=== PATIENT | male | born 1990 | race African-American/Black ===

== ENCOUNTER 2017-10-31 18:21 | Emergency (ER) | payer OTHER ==
[~2017-10-31] VITALS: Ht 188 cm; Wt 81.7 kg
[2017-10-31] MEDS ORDERED: SYMBICORT80 MCG/4.1 INH (18:32)
[2017-10-31] MEDS ORDERED: IBUPROFEN 800800 M1 PO (19:37)
[2017-10-31] MEDS ORDERED: TRAMADOL 50 MG50 MG PO (19:37)
[2017-10-31] MEDS ORDERED: CLEOCIN HCL300 MG PO (19:37)
[2017-10-31 19:43] VITALS: BP 112/71
== END 2017-10-31 19:44 | disposition home or self-care (01) ==
LOC: M.ERS 18:21
DX: S02.5XXA Fracture of tooth (traumatic), initial encounter for closed fracture (principal); J45.909 Unspecified asthma, uncomplicated; X58.XXXA Exposure to other specified factors, initial encounter; Y93.89 Activity, other specified; Y92.89 Other specified places as the place of occurrence of the external cause; Y99.8 Other external cause status

== ENCOUNTER 2017-12-04 16:20 | Emergency (ER) | payer OTHER ==
[~2017-12-04] VITALS: Ht 188 cm; Wt 81.7 kg
[~2017-12-04 16:20] MED LIST: CLEOCIN HCL300 MG PO; IBUPROFEN 800800 M1 PO; SYMBICORT80 MCG/4.1 INH; TRAMADOL 50 MG50 MG PO
[2017-12-04] MEDS ORDERED: TRAMADOL 50 MG50 MG PO (16:39)
[2017-12-04] MEDS ORDERED: AMOXICILLIN 50500 MG PO (16:39)
[2017-12-04 16:47] VITALS: BP 144/81
== END 2017-12-04 16:48 | disposition home or self-care (01) ==
LOC: M.ERS 16:20
DX: K08.89 Other specified disorders of teeth and supporting structures (principal); J45.909 Unspecified asthma, uncomplicated

== ENCOUNTER 2018-01-19 16:31 | Emergency (ER) | payer OTHER ==
[~2018-01-19] VITALS: Ht 188 cm; Wt 81.7 kg
[~2018-01-19 16:31] MED LIST changes: +AMOXICILLIN 50500 MG PO
[2018-01-19 16:37] VITALS: BP 151/93
[2018-01-19] MEDS ORDERED: AMOXICILLIN 50500 MG PO (16:49)
[2018-01-19] MEDS ORDERED: TRAMADOL 50 MG50 MG PO (16:49)
== END 2018-01-19 16:53 | disposition home or self-care (01) ==
LOC: M.ERS 16:31
DX: K02.9 Dental caries, unspecified (principal); J45.909 Unspecified asthma, uncomplicated

== ENCOUNTER 2018-02-17 18:18 | Emergency (ER) | payer OTHER ==
[~2018-02-17] VITALS: Ht 188 cm; Wt 86.2 kg
[2018-02-17] MEDS ORDERED: TRAMADOL 50 MG50 MG PO (18:42)
[2018-02-17] MEDS ORDERED: AMOXICILLIN 50500 MG PO (18:42)
[2018-02-17 18:47] VITALS: BP 127/88
== END 2018-02-17 18:50 | disposition home or self-care (01) ==
LOC: M.ERS 18:18
DX: K08.89 Other specified disorders of teeth and supporting structures (principal); J45.909 Unspecified asthma, uncomplicated

== ENCOUNTER 2018-03-01 22:20 | Emergency (ER) | payer OTHER ==
[~2018-03-01] VITALS: Ht 188 cm; Wt 83.9 kg
[2018-03-01 22:39] LABS: URINE BLOOD NEGATIVE (Negative); URINE CLARITY CLEAR; URINE COLOR YELLOW; URINE GLUCOSE-RANDOM NEGATIVE (Negative); URINE LEUKOCYTES NEGATIVE (Negative); URINE NITRITE NEGATIVE (Negative); URINE PROTEIN TRACE (Negative); URINE SPECIFIC GRAVITY >= 1.030 (1.005-1.030); URINE UROBILINOGEN 0.2 E.U./dl (0.2-1.0)
[2018-03-01 22:42] LABS: ICTOTEST (BILI CONFIRMATORY) Negative (Negative); URINE BILIRUBIN 1+ (Negative); URINE KETONES 3+ (Negative); URINE REDUCING SUBSTANCE NEGATIVE (Negative)
[2018-03-01 22:54] LABS: HEMATOCRIT 49.7 % (42.0-52.0); HEMOGLOBIN 16.2 gm/dL (14.0-18.0); MCH 27.4 pg (26.0-34.0); MCHC 32.7 g/dL (28.0-37.0); MPV 7.1 fl. (7.2-11.1); NUCLEATED RBCS 0 /100WBC; PLATELET COUNT* 336 thou/uL (150-400); RBC 5.91 mil/uL (4.50-6.00); RDW-CV 14.6 % (10.5-14.5); WBC 14.9 thou/uL (4.0-11.0)
[2018-03-01 23:01] LABS: CALCIUM 9.6 mg/dL (8.5-10.1); CREATININE 1.2 mg/dL (0.6-1.3); POTASSIUM 4.1 mmol/L (3.5-5.1)
[2018-03-01 23:05] LABS: ALBUMIN 4.3 g/dL (3.4-5.0); TOTAL BILIRUBIN 0.4 mg/dL (<0.1-1.0); TOTAL PROTEIN 8.2 g/dL (6.4-8.2)
[2018-03-02 00:10] LABS: ABSOLUTE LYMPHOCYTES 1.8 thou/uL (0.8-5.3); ABSOLUTE MONOCYTES 0.9 thou/uL (0.0-1.2); ABSOLUTE NEUTROPHILS 12.2 thou/uL (1.6-8.1); GIANT PLATELETS RARE; PLATELET ESTIMATE ADEQUATE
[2018-03-02] MEDS ORDERED: ULTRAM 50MG TAB50 MG PO (00:27)
[2018-03-02] MEDS ORDERED: ZOFRAN ODT4 MG SUBLING (00:27)
[2018-03-02] MEDS ORDERED: CIPROFLOXACIN500 M1 PO (00:35)
[2018-03-02 00:57] VITALS: BP 118/78
== END 2018-03-02 00:58 | disposition home or self-care (01) ==
LOC: M.ERS 22:20
PROVIDERS: Physician Assistant
DX: K52.9 Noninfective gastroenteritis and colitis, unspecified (principal); E86.0 Dehydration; J45.909 Unspecified asthma, uncomplicated

== ENCOUNTER 2018-03-20 17:51 | Emergency (ER) | payer OTHER ==
[~2018-03-20] VITALS: Ht 188 cm; Wt 81.7 kg
[~2018-03-20 17:51] MED LIST changes: +CIPROFLOXACIN500 M1 PO; +ULTRAM 50MG TAB50 MG PO; +ZOFRAN ODT4 MG SUBLING
[2018-03-20] MEDS ORDERED: CYMBALTA30 MG PO (18:03)
[2018-03-20] MEDS ORDERED: IBU800 MG PO (18:15)
[2018-03-20 18:23] VITALS: BP 136/99
== END 2018-03-20 18:23 | disposition home or self-care (01) ==
LOC: M.ERS 17:51
DX: K08.89 Other specified disorders of teeth and supporting structures (principal); J45.909 Unspecified asthma, uncomplicated

== ENCOUNTER 2018-05-04 17:54 | Emergency (ER) | payer OTHER ==
[~2018-05-04] VITALS: Ht 188 cm; Wt 81.7 kg
[~2018-05-04 17:54] MED LIST changes: +CYMBALTA30 MG PO; +IBU800 MG PO
[2018-05-04] MEDS ORDERED: SYMBICORT160 MCG/4. INH (18:05)
[2018-05-04 18:22] LABS: ABSOLUTE LYMPHOCYTES 1.6 thou/uL (0.8-5.3); ABSOLUTE MONOCYTES 0.5 thou/uL (0.0-1.2); ABSOLUTE NEUTROPHILS 5.9 thou/uL (1.6-8.1); BASOPHILS 0.5 %; EOSINOPHILS 0.3 %; HEMATOCRIT 48.3 % (42.0-52.0); HEMOGLOBIN 15.7 gm/dL (14.0-18.0); LYMPHOCYTES 20.2 %; MCH 27.4 pg (26.0-34.0); MCHC 32.6 g/dL (28.0-37.0); MCV 84.1 fL (80.0-100.0); MONOCYTES 5.6 %; MPV 7.1 fl. (7.2-11.1); NUCLEATED RBCS 0 /100WBC; PLATELET COUNT* 345 thou/uL (150-400); POLYS 73.4 %; RBC 5.74 mil/uL (4.50-6.00); RDW-CV 15.1 % (10.5-14.5); WBC 8.1 thou/uL (4.0-11.0)
[2018-05-04 18:38] LABS: CALCIUM 9.8 mg/dL (8.5-10.1); CREATININE 0.9 mg/dL (0.6-1.3); POTASSIUM 3.5 mmol/L (3.5-5.1)
[2018-05-04 18:49] LABS: ALBUMIN 4.2 g/dL (3.4-5.0); TOTAL BILIRUBIN 0.3 mg/dL (<0.1-1.0); TOTAL PROTEIN 8.4 g/dL (6.4-8.2)
[2018-05-04 19:09] LABS: URINE BILIRUBIN NEGATIVE (Negative); URINE BLOOD 2+ (Negative); URINE CLARITY CLEAR; URINE COLOR YELLOW; URINE GLUCOSE-RANDOM NEGATIVE (Negative); URINE KETONES NEGATIVE (Negative); URINE LEUKOCYTES-REFLEX 1+ (Negative); URINE NITRITE-REFLEX NEGATIVE (Negative); URINE PROTEIN NEGATIVE (Negative); URINE SPECIFIC GRAVITY 1.025 (1.005-1.030); URINE UROBILINOGEN 0.2 E.U./dl (0.2-1.0)
[2018-05-04 19:15] LABS: BACTERIA-REFLEX None Seen /HPF (None Seen); MUCUS >6 Heavy strn/LPF (None Seen); SQUAMOUS 4-10 Moderate /LPF (0-3); URINE RBC 0-2 Rare /HPF (0-2); URINE WBC-REFLEX 0-5 Rare /HPF (0-5)
[2018-05-04 19:16] LABS: CASTS None Seen /LPF (None Seen); CRYSTALS None Seen /LPF (None Seen)
[2018-05-04] MEDS ORDERED: IBUPROFEN 800800 M1 PO (19:36)
[2018-05-04] MEDS ORDERED: PHENERGAN 25 MG25 M1 PO (19:36)
[2018-05-04] MEDS ORDERED: ACETAMINOPHEN-1 EAC1 PO (19:36)
[2018-05-04 19:46] VITALS: BP 122/63
== END 2018-05-04 19:47 | disposition home or self-care (01) ==
LOC: M.ERS 17:54
PROVIDERS: Physician Assistant
DX: R10.30 Lower abdominal pain, unspecified (principal); J45.909 Unspecified asthma, uncomplicated

== ENCOUNTER 2018-05-18 16:51 | Emergency (ER) | payer OTHER ==
[~2018-05-18] VITALS: Ht 188 cm; Wt 83.9 kg
[~2018-05-18 16:51] MED LIST changes: +ACETAMINOPHEN-1 EAC1 PO; +PHENERGAN 25 MG25 M1 PO; +SYMBICORT160 MCG/4. INH
[2018-05-18] MEDS ORDERED: ULTRAM 50MG TAB50 MG PO (17:07)
[2018-05-18 17:15] VITALS: BP 134/73
== END 2018-05-18 17:15 | disposition home or self-care (01) ==
LOC: M.ERS 16:51
DX: S30.22XA Contusion of scrotum and testes, initial encounter (principal); J45.909 Unspecified asthma, uncomplicated; W11.XXXA Fall on and from ladder, initial encounter; Y93.89 Activity, other specified; Y92.89 Other specified places as the place of occurrence of the external cause; Y99.8 Other external cause status

== ENCOUNTER 2018-06-24 17:29 | Emergency (ER) | payer OTHER ==
[~2018-06-24] VITALS: Ht 188 cm; Wt 81.7 kg
[2018-06-24] MEDS ORDERED: IBUPROFEN 600600 M1 PO (17:35)
[2018-06-24] MEDS ORDERED: PENICILLIN V P500 MG PO (18:14)
[2018-06-24] MEDS ORDERED: TRAMADOL 50 MG50 MG PO (18:14)
[2018-06-24] MEDS ORDERED: MOBIC7.5 MG PO (18:14)
[2018-06-24 18:21] VITALS: BP 132/80
== END 2018-06-24 18:22 | disposition home or self-care (01) ==
LOC: M.ERS 17:29
DX: K08.89 Other specified disorders of teeth and supporting structures (principal); J45.909 Unspecified asthma, uncomplicated

== ENCOUNTER 2018-09-03 18:37 | Emergency (ER) | payer OTHER ==
[~2018-09-03] VITALS: Ht 188 cm; Wt 79.4 kg
[~2018-09-03 18:37] MED LIST changes: +IBUPROFEN 600600 M1 PO; +MOBIC7.5 MG PO; +PENICILLIN V P500 MG PO
[2018-09-03 18:43] VITALS: BP 150/92
[2018-09-03] MEDS ORDERED: SYMBICORT160 MCG/4. INH (18:45)
[2018-09-03] MEDS ORDERED: IBU800 MG PO (18:51)
== END 2018-09-03 18:57 | disposition home or self-care (01) ==
LOC: M.ERS 18:37
DX: S02.5XXA Fracture of tooth (traumatic), initial encounter for closed fracture (principal); J45.909 Unspecified asthma, uncomplicated; X58.XXXA Exposure to other specified factors, initial encounter; Y93.89 Activity, other specified; Y92.89 Other specified places as the place of occurrence of the external cause; Y99.8 Other external cause status